=== PATIENT | female | born 1965 | race Caucasian/White ===

== ENCOUNTER 2017-11-06 10:38 | Day surgery (SDC) | payer BC ==
[~2017-11-06 10:38] MED LIST: HYDROmorphone 2 MG/ML VIAL IV PRN; IV RINGERS,LACTATED 1000ML 1,000 ML IV SCH; LIDOCAINE 1% PF 2 ML VIAL. ID PRN; MIDAZOLAM HCL/PF 2 MG/2 ML VIAL. ONE; MORPHINE SULFATE 2 MG/ML VIAL. IV PRN; ONDANSETRON PF 4 MG/2 ML VIAL. IV PRN; PROCHLORPERAZINE 10 MG/2 ML VIAL. IV PRN; PROPOFOL 60 ML IV ONE; fentaNYL PF VIAL 100 MCG/2 ML VIAL IV PRN
--- NOTE | 2017-11-06 12:52 | RAD ---
MRI Thoracic Spine without contrast History: Mid back pain, spondylosis, degenerative disc disease, previous fractures Technique: Multiplanar, multi sequential noncontrast MR imaging was performed of the thoracic spine. Contrast: None Comparison: None Findings: Thoracic cord caliber is within normal limits without focal signal abnormality. There is no edema suggestive of a recent compression fracture. There is old mild superior endplate concavity of T11, associated Schmorl's node which is internally hyperintense on STIR signal. There is trace edema of the anterior T9-T10 corners likely reactive/degenerative in etiology. There is multilevel mild degenerative disc disease of mid to inferior thoracic levels. There is no significant thoracic spinal stenosis at any level. There is multilevel posterior epidural lipomatosis without significant attenuation of the thecal sac. There is negligible posterior protrusion at T4-5. There is no significant thoracic neural foramina compromise. As seen at the superior aspect of the exam, there is degenerative disc disease and spondylosis C5-6 at which there is likely mild the spinal stenosis. Impression: 1. There is no evidence of recent thoracic compression fracture, old superior endplate concavity of T11 with associated Schmorl's node. 2. There is multilevel mild degenerative disc disease of mid to inferior thoracic levels. 3. There is degenerative disc disease and spondylosis at C5-C6 at which there is likely mild spinal stenosis. Electronically signed by: Raghu Mendez MD (11/06/2017 12:48 PM) [id number]
--- NOTE | 2017-11-06 12:56 | RAD ---
MRI Lumbar Spine without contrast History: MID BACK PAIN, SPONDYLOSIS, degenerative disc disease, previous fracture Technique: Multiplanar, multi sequential noncontrast MR imaging was performed of the lumbar spine. Contrast: None Comparison: None Findings: T11. There is advanced degenerative disc disease with partial interbody fusion L5-S1, also fairly advanced degenerative disc disease L4-5, mild to moderate degenerative disc disease L3-4. There is negligible posterior subluxation L3 relative L4 and L5 relative S1. There is small hemangioma of the L2 vertebral body. Conus terminates at L1. L2-L3: Neural foramina and spinal canal are adequate. There is mild buckling of the ligament flavum and facet degenerative change. L3-L4: There is disc osteophyte complex and minimal bulge. There is mild buckling of the ligamentum flavum. Neural foramina and spinal canal are overall adequate. L4-L5: There is minimal disc osteophyte complex. There is mild buckling of the ligamentum flavum. There is very mild narrowing of the far left lateral recess. There is mild neural foramina compromise bilaterally. L5-S1: There is disc osteophyte complex more eccentric to the right lateral recess and inferior right neural foramen, resultant [id number] narrowing of the right lateral recess with contact of the descending right S1 nerve root. There is mild narrowing of the inferior right neural foramen, left neural foramen overall adequate. Impression: 1. There is partial interbody fusion L5-S1, fairly advanced degenerative disc disease L4-5 and to lesser degree at L3-4. There is spondylosis at the same levels. There is [id number] right lateral recess stenosis by disc osteophyte complex at L5-S1 with contact descending right S1 nerve root, also contributes to mild narrowing of the inferior right L5-S1 neural foramen. There is mild neural foramina compromise bilaterally at L4-L5. Electronically signed by: Raghu Mendez MD (11/06/2017 12:53 PM) [id number]
[2017-11-06 13:00] VITALS: BP 99/58
== END 2017-11-06 13:24 | disposition home or self-care (01) ==
LOC: SURG 10:38
PROVIDERS: ATTEND Anesthesiology Pain Medicine
DX: M51.34 Other intervertebral disc degeneration, thoracic region (principal); M47.814 Spondylosis without myelopathy or radiculopathy, thoracic region; M47.816 Spondylosis without myelopathy or radiculopathy, lumbar region; M48.061 Spinal stenosis, lumbar region without neurogenic claudication; M51.36 Other intervertebral disc degeneration, lumbar region; Z88.0 Allergy status to penicillin; Z88.5 Allergy status to narcotic agent; Z88.8 Allergy status to other drugs, medicaments and biological substances
CPT/HCPCS: 72146; 72148; J2250; J2704; J3010

== ENCOUNTER → 2018-06-17 | Outpatient (CLI) | payer BC ==
--- NOTE | 2018-06-18 17:01 | KCIC ---
Right breast ultrasound: Reason for examination: Right breast lump at the 6:00 position at the intramammary fold found on clinical exam. Ultrasound examination of the right breast was performed in the area of clinical concern and at the right axilla. There is mild ductal ectasia in the 9:00 position. No other cystic or solid nodules are seen within the breast parenchyma. No abnormal appearing lymph nodes are seen in the axilla. IMPRESSION: No suspicious abnormality seen in the right breast sonographically. Recommend routine mammographic follow-up. BI-RADS Category 2: Benign. "Our facility is accredited by the [employer] Mammography Program." This patient's information has been entered into a reminder system for the patient to be notified with the results of her examination and a target date for the next mammogram. Electronically signed by: Jaqueline Patel MD (06/18/2018 4:58 PM) [id number]
== END | disposition home or self-care (01) ==
LOC: KCIC US 12:50
PROVIDERS: ATTEND Obstetrics & Gynecology
DX: N60.41 Mammary duct ectasia of right breast (principal)
CPT/HCPCS: 76641